=== PATIENT | male | born 1930 | race Caucasian/White ===

== ENCOUNTER 2016-07-21 14:48 | Inpatient (IN) | payer OTHER, MEDICARE ==
[~2016-07-21] VITALS: Ht 182.9 cm; Wt 78.0 kg
[2016-07-24] MEDS ORDERED: APIX5TAB PO (15:48)
[2016-07-24] MEDS ORDERED: LEVO100T5 PO (15:48)
[2016-07-24] MEDS ORDERED: DILT120T PO (15:48)
[2016-07-24] MEDS ORDERED: NIAC500T18 PO (15:56)
[2016-07-24] MEDS ORDERED: ACET500C9 PO (15:56)
[2016-07-24] MEDS ORDERED: GARL2000 PO (15:56)
[2016-07-24] MEDS ORDERED: VITA10007 PO (15:56)
[2016-07-24] MEDS ORDERED: LUTE40CA2 PO (15:56)
[2016-07-24] MEDS ORDERED: CHOL50008 PO (15:56)
[2016-07-24] MEDS ORDERED: COQ-100C2 PO (15:56)
[2016-07-24] MEDS ORDERED: OMEGCAP PO (15:56)
[2016-07-24] MEDS ORDERED: METACAP2 PO (15:56)
[2016-07-24] MEDS ORDERED: GARL500C5 (15:56)
[2016-07-24] MEDS ORDERED: FERR240T PO (15:56)
--- NOTE | 2016-07-24 17:52 | MH ---
cc: GABRIELA RUIZ DATE OF ADMISSION 07/25/2016 ADMISSION DIAGNOSIS Malfunctioning left total hip replacement arthroplasty. HISTORY OF THE PRESENT ILLNESS This is an 85-year-old white male status post bilateral previous hip replacement arthroplasty. The patient developed progressive dislocation of his right hip in the past and the patient came to revision hip surgery by the undersigned in 2011. 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 He has done well with his right hip having almost no symptoms. The patient is having progressive dislocation of left hip. Investigative studies shows evidence of the significant wear of the polyethylene with dislocation related to malfunctioning of the components. He presents for revision surgery. PAST MEDICAL HISTORY, SOCIAL HISTORY AND FAMILY HISTORY See attached notes. REVIEW OF SYSTEMS See attached notes. PHYSICAL EXAMINATION VITAL SIGNS: 5 feet 11 inches, 177 pounds, BMI 24.7. Blood pressure 136/82. HEENT: Normocephalic, atraumatic. Pupils equal, round, reactive to light and accommodation. Extraocular motions intact. NECK: Supple. CHEST: Clear. HEART: Regular rate and rhythm. ABDOMEN: Soft, nontender, normoactive sounds. MUSCULOSKELETAL: Examination, left hip well-healed lateral and posterior incision. Pain with range of motion. Left hip flexion 80, internal rotation 20, external rotation 30. There is pain with range of motion. Neurologic vascular emanation is within normal limits. IMPRESSION Malfunctioning left total hip replacement arthroplasty. PLAN Revision left total hip replacement arthroplasty, possible extended femoral shaft osteotomy. CONSENT The risks of surgery including infection, bleeding, loss of motion, continued pain, need for further surgery, neurologic or vascular injury. The patient understands these issues and wishes to press on with surgery as outlined above. MD MEGHAN Pina/KK /5:25 PM /5:41 PM
[2016-07-25] MEDS ORDERED: INSULIN HUMAN REGULAR 1,000 UNITS/10 ML VIAL SQ PRN (11:15)
[2016-07-25] MEDS: EXPAREL PERI-ARTICULAR INJECTION (TOTAL VOL. 60 ML) P-ARTICULR SCH ×4 (11:15→17:00)
[2016-07-25] MEDS ORDERED: LACTATED RINGER'S 1000 ML IV SCH (11:15)
[2016-07-25] MEDS ORDERED: ceFAZolin 2 GM PREMIX 50 ML IV SCH (11:15)
[2016-07-25] MEDS: POVIDONE IODINE 7.5% SCRUB 118 ML BOTTLE TOP SCH (11:15)
[2016-07-25] MEDS ORDERED: VANCOMYCIN 1000 MG/NS 250 ML (for <70 kg) IV SCH ×2 (11:15)
[2016-07-25] MEDS: SODIUM CHLORIDE 0.9% IV SCH ×2 (11:15→15:35)
[2016-07-25] MEDS ORDERED: METOPROLOL TARTRATE 25 MG TAB PO PRN (11:15)
[2016-07-25] MEDS: TRANEXAMIC ACID IV SCH ×2 (11:15→15:35)
[2016-07-25] MEDS: SODIUM CHLORID 0.9% 500 ML IV SCH (11:15)
[2016-07-25] MEDS ORDERED: HEPARIN SODIUM - SQ 10,000 UNITS/ML VIAL ONE (11:55)
[2016-07-25] MEDS ORDERED: PROPOFOL 200 MG/20 ML AMP IV ONE (12:00)
[2016-07-25] MEDS ORDERED: ONDANSETRON HCL 4 MG/2 ML VIAL IV PUSH ONE (12:00)
[2016-07-25] MEDS ORDERED: LACTATED RINGER'S 1000 ML INJ 1,000 ML IV ONE (12:00)
[2016-07-25] MEDS ORDERED: NEOSTIGMINE 3 MG/3 ML SYR IV ONE (12:00)
[2016-07-25] MEDS ORDERED: PHENYLEPH/NS 1000 MCG/10 ML SYR IV ONE (12:00)
[2016-07-25] MEDS ORDERED: NORMOSOL R INJ 3,000 ML IV ONE (12:00)
[2016-07-25 12:07] VITALS: BP 151/87; PULSE 85; RESP 16; TEMP 97.9; O2SAT 100
[2016-07-25] MEDS ORDERED: GENTAMICIN SULFATE 80 MG/2 ML VIAL ONE (12:33)
[2016-07-25] MEDS ORDERED: ACETAMINOPHEN 1000 MG/100 ML VIAL IV ONE (13:18)
[2016-07-25] MEDS ORDERED: MIDAZOLAM HCL 2 MG/2 ML VIAL ONE (13:18)
[2016-07-25] MEDS ORDERED: DEXAMETHASONE SOD PHOS 4 MG/ML VIAL ONE (13:19)
[2016-07-25] MEDS ORDERED: GELFOAM SIZE 100 ONE (14:26)
[2016-07-25] MEDS ORDERED: THROMBIN (TOPICAL) 5,000 UNIT VIAL ONE (14:26)
[2016-07-25] MEDS ORDERED: fentaNYL CITRATE 250 MCG/5 ML AMP ONE ×2 (16:59)
--- NOTE | 2016-07-25 17:05 | EKG ---
Date Performed: 07/25/2016 Time Performed: 11:57:22 PTAGE: 85 years EKG: ATRIAL FIBRILLATION LOW QRS VOLTAGE IN EXTREMITY LEADS ABNORMAL RHYTHM ECG NO PREVIOUS TRACING DOCTOR: Robby Middleton Interpretating Date/Time 07/25/2016 17:02:09
[2016-07-25] MEDS ORDERED: MORPHINE SULFATE 8 MG/ML INJ IM PRN (17:30)
[2016-07-25] MEDS ORDERED: Post-op Orders (for Pharmacy) MISC XX ONE (17:30)
[2016-07-25] MEDS ORDERED: BISACODYL 10 MG SUPP PR PRN (17:30)
[2016-07-25] MEDS ORDERED: MORPHINE SULFATE 30 MG/30 ML PCA IV SCH (17:30)
[2016-07-25] MEDS ORDERED: TEMAZEPAM 15 MG CAP PO PRN (17:30)
[2016-07-25] MEDS ORDERED: SODIUM CHLORIDE 0.9% FLUSH 5 ML FLUSH IVF PRN (17:30)
[2016-07-25] MEDS ORDERED: NALOXONE HCL 0.4 MG/ML AMP IV PRN (17:30)
[2016-07-25] MEDS ORDERED: ALUMINUM/MAGNESIUM/SIMETH 30 ML CUP PO PRN (17:30)
--- NOTE | 2016-07-25 17:45 | PD.OP ---
cc: Selvin Borja MD Operative Report Date of Surgery: Jul 25, 2016 Preoperative Diagnosis: Malfunctioning left total hip replacement arthroplasty Postoperative Diagnosis: Same Procedure: Revision left total hip replacement arthroplasty Anesthesia: Gen. Surgeon: Selvin Borja Mail Handler Assistant(s): PEPITO Goodrich Operation and Findings: EBL: 175 cc INDICATION: This patient is an 85-year-old male who had a primary left total hip replacement many years ago in [place]. Over the last 6 months he's had multiple episodes of dislocation of his total hip. He has evidence of malfunctioning of the acetabular component with wear the components. He now presents for revision. NOTE: Nela Goodrich PA-C was present for the entire surgical procedure as my campus administrative assistant. In my medical opinion her skill and care was necessary for the proper management of this patient. COMPONENTS: COMPANY: [employer] CUP: [employer] nephew, reflection, 56 mm HEAD: [employer] nephew, oxalium 36 mm, +4 12/14 taper LINER: Anteverted liner, +4 offset, hooded, 36 mm, 54/56 PROCEDURE: This patient was brought to the operating room and anesthetized in the supine position and positioned on the routine table in the clean air suite. The patient was then rolled to a left side up lateral position and held with a Biomet hip positioner. The hip and leg was scrubbed with alcohol followed by Hibiclens followed by chloro prep and draped sterilely. A timeout was done and antibiotics were given within a routine time window. A 5 inch incision was made starting along the posterior one third of the greater trochanter, excising the previous incision. The iliotibial band was opened in line with the incision. The Charnley retractors were positioned. The posterior capsule and external rotators were taken down together in a sleeve. Significant granulation tissue was identified which was resected. There was a significant greater trochanteric bursitis which was also resected. The gluteus yuliya insertion was taken down. A subtotal capsulectomy was performed. Significant previous scar tissue was resected. There was significant wear of the polyethylene posteriorly was seen and allowing the femoral head to dislocate posteriorly fairly easily. The acetabular component was exposed. The hip was dislocated posteriorly. The femoral head was removed. Minimal corrosion along the femoral neck was seen. The femoral component was checked carefully. It was impacted quite hard. There was no evidence of loosening. Granulation tissue was resected around the proximal femur. The attention was directed to the acetabular component. The polyethylene was loose and was removed without difficulty. We checked carefully the acetabular component. We impacted this several times in a retrograde fashion and appeared to be quite solid. It was anteverted approximately 15. Because of the lack of significant anteversion, we trialed a 36 mm with a fluted +4 offset type acetabular component. We then reduced this with a +4 x 36 femoral head. At 90 flexion with 10 of adduction we were stable to 65 or 70 of internal rotation. With full external rotation and extension and could not be subluxed anteriorly. The acetabular component was inspected. It was cleansed properly. The final acetabular component was impacted. We redirected to the stem and trialed again with a +4 and then finally used a 36 mm +4 femoral head. The hip was reduced. The leg length appeared to be equal where we started. Stability was as previously noted. The posterior capsule and external rotators were repaired through bone with interrupted #2 Tycron sutures. The piriformis muscle was repaired with the same. The iliotibial band with interrupted #1 Vicryl sutures. Subcutaneous tissue was approximated with 2-0 Vicryl suture and skin with running intradermal 3-0 Vicryl followed by Steri-Strips and benzoin. A sterile dressing was applied.. The sponge count needle counts and instrument counts were all correct. The patient was awakened and taken to the recovery room in satisfactory condition FINDINGS: This patient had significant granulation tissue. The plastic acetabular component was not solidly locked. There was dislocation with the femoral head dislocating posteriorly quite easily over a rim defect in the acetabular component. The final solution was excellent. Selvin Borja MD Jul 25, 2016 17:45
[2016-07-25] MEDS ORDERED: HYDR-3580 PO (17:50)
[2016-07-25] MEDS ORDERED: APIX2.5T PO (17:50)
[2016-07-25] MEDS: LACTATED RINGER'S 1000 ML INJ 1,000 ML IV SCH (18:41)
[2016-07-25 19:12] LABS: HEMATOCRIT 40.8 % (39.0-51.0); REVIEW FLAG FINAL
[2016-07-25] MEDS: SODIUM CHLORIDE 0.9% FLUSH 5 ML FLUSH IVF SCH (20:46)
[2016-07-25] MEDS: DILTIAZEM-CD 120 MG CAP ER PO SCH (21:00)
[2016-07-25] MEDS: PCA - TOTAL MG MORPHINE DELIVERED PER SHIFT SCH (22:00)
[2016-07-26] MEDS: SODIUM CHLORID 0.9% 500 ML IV SCH (03:55)
[2016-07-26] MEDS: LEVOTHYROXINE SODIUM 100 MCG TAB PO SCH (05:00)
[2016-07-26] MEDS: PCA - TOTAL MG MORPHINE DELIVERED PER SHIFT SCH (05:15)
[2016-07-26 06:58] LABS: HEMATOCRIT 39.5 % (39.0-51.0); REVIEW FLAG FINAL
[2016-07-26] MEDS: LACTATED RINGER'S 1000 ML INJ 1,000 ML IV SCH ×2 (07:00→17:37)
[2016-07-26] MEDS ORDERED: MISC-163 (07:54)
[2016-07-26] MEDS ORDERED: WALKER WHEELS/F1 MIS (07:54)
[2016-07-26] MEDS: SODIUM CHLORIDE 0.9% FLUSH 5 ML FLUSH IVF SCH ×2 (08:31→20:50)
[2016-07-26] MEDS ORDERED: PNEUMOCOCCAL POLYVALENT INJ 25 MCG/0.5 ML SYR IM ONE (09:00)
[2016-07-26] MEDS ORDERED: INFLUENZA VIRUS VACCINE (QUADRIVALENT) 0.5 ML SYR IM ONE (09:00)
[2016-07-26] MEDS: POVIDONE IODINE 7.5% SCRUB 118 ML BOTTLE TOP SCH (11:15)
[2016-07-26] MEDS: ACETAMINOPHEN/HYDROcodone 325 MG/7.5 MG TAB PO PRN ×2 (12:36→20:49)
[2016-07-26 13:00] VITALS: BP 124/73; PULSE 103; RESP 16; TEMP 96.2; O2SAT 95
--- NOTE | 2016-07-26 13:12 | PD.ORT.PN ---
Subjective Subjective Remarks He has moderate left hip pain that is well controlled with medications. He states he is 'comfortable in bed'. He denies any new leg pain, CP or SOB. He has many questions about surgery. Objective Vitals Vital Signs Date Time Temp Pulse Resp B/P Pulse Ox O2 Delivery O2 Flow Rate FiO2 07/26/16 08:30 98.1 96 13 128/91 98 Room Air 07/26/16 06:00 97.7 95 12 99 Nasal Cannula 2 07/26/16 05:15 12 07/26/16 04:00 98.0 97 16 127/85 98 Nasal Cannula 2 07/26/16 02:00 102 12 99 Nasal Cannula 2 07/26/16 00:00 97.5 101 12 118/78 99 Nasal Cannula 2 07/26/16 00:00 97.5 07/25/16 22:00 97.4 103 16 132/87 100 Nasal Cannula 2 07/25/16 22:00 97.4 07/25/16 22:00 16 07/25/16 21:00 108 16 137/88 99 Nasal Cannula 2 07/25/16 20:30 97.2 07/25/16 20:00 97.2 93 22 142/96 100 Nasal Cannula 2 07/25/16 19:45 88 17 139/92 100 Nasal Cannula 2 07/25/16 19:30 97.4 90 16 154/97 100 Nasal Cannula 2 07/25/16 19:15 87 16 159/99 95 Nasal Cannula 2 07/25/16 19:00 85 18 147/94 100 Nasal Cannula 2 07/25/16 18:45 88 18 138/92 100 Nasal Cannula 3 07/25/16 18:41 18 07/25/16 18:30 97 18 136/85 99 Nasal Cannula 3 07/25/16 18:15 85 20 154/96 99 Nasal Cannula 3 07/25/16 18:12 97.2 90 20 147/95 96 Nasal Cannula 3 I/O 07/25/16 07/25/16 07/25/16 07/26/16 07/26/16 07/26/16 07:00 15:00 23:00 07:00 15:00 23:00 Intake Total 3632 ml 1617 ml 240 ml Output Total 1120 ml 700 ml Balance 2512 ml 917 ml 240 ml Intake Oral 594 ml 942 ml 240 ml IV Total 438 ml 675 ml Other 2600 ml Output Urine Total 940 ml 700 ml Estimated Blood Loss 180 ml Result Diagram: 07/26/16 0449 Objective Remarks Sitting up in bed in PACU, No acute distress, Anxious VSS LLE Dressing c/d/i, very little drainage, mild swelling, no erythema thigh and calf supple, neg homans +motor at, +sens, +nvi Assessment & Plan Ortho Post Op Day #: 1 Problem List: Assessment and Plan pod#1 s/p Rev L TARIQ, 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 PT - WBAT LLE, posterior approach precautions. Walker/Gait training. Hold dressing changes unless saturated. Eliquis for dvt prophylaxis (was on preoperatively) D/C planning, likely SNF sunday. DME written. Selvin Borja MD Jul 26, 2016 13:12
[2016-07-26 16:00] VITALS: BP 115/76; PULSE 102; RESP 18; TEMP 97.6; O2SAT 99
[2016-07-26 16:20] VITALS: BP 129/76; PULSE 98; RESP 16; TEMP 96.4; O2SAT 96
[2016-07-26] MEDS: APIXABAN 2.5 MG TABLET PO SCH (17:35)
[2016-07-26 19:53] VITALS: BP 136/83; PULSE 111; RESP 18; TEMP 97.6; O2SAT 96
[2016-07-26] MEDS: DILTIAZEM-CD 120 MG CAP ER PO SCH (20:49)
[2016-07-26] MEDS: DOCUSATE SODIUM 100 MG CAP PO SCH (20:49)
[2016-07-27] MEDS: LACTATED RINGER'S 1000 ML INJ 1,000 ML IV SCH ×2 (00:52→20:00)
[2016-07-27 01:04] VITALS: BP 141/86; PULSE 115; RESP 17; TEMP 95.8; O2SAT 95
[2016-07-27] MEDS: MAGNESIUM HYDROXIDE SUSP 30 ML CUP PO PRN ×2 (05:59→21:08)
[2016-07-27] MEDS: LEVOTHYROXINE SODIUM 100 MCG TAB PO SCH (06:00)
[2016-07-27] MEDS: ACETAMINOPHEN/HYDROcodone 325 MG/7.5 MG TAB PO PRN ×3 (06:00→21:48)
[2016-07-27] MEDS: ONDANSETRON HCL 4 MG/2 ML VIAL IVP PRN ×2 (06:00→21:49)
[2016-07-27] MEDS: APIXABAN 2.5 MG TABLET PO SCH ×2 (06:20→18:02)
[2016-07-27 08:00] VITALS: BP 152/85; PULSE 123; RESP 19; TEMP 100.2; O2SAT 98
[2016-07-27] MEDS: POVIDONE IODINE 7.5% SCRUB 118 ML BOTTLE TOP SCH (08:26)
[2016-07-27] MEDS: SODIUM CHLORIDE 0.9% FLUSH 5 ML FLUSH IVF SCH ×2 (08:27→21:09)
[2016-07-27] MEDS: DOCUSATE SODIUM 100 MG CAP PO SCH ×2 (08:27→21:08)
--- NOTE | 2016-07-27 09:27 | HHI.DCPOC ---
Discharge Care Plan Diagnosis: (1) Left hip pain (2) Mechanical complic of internal orthopedic device, implant or graft (3) History of total left hip arthroplasty Your Health Problems Are: Incision/Drains Goals to Promote Your Health * To prevent worsening of your condition and complications * To maintain your health at the optimal level Directions to Meet Your Goals Take your medications as prescribed Follow your dietary instruction Follow activity as directed Keep your appointments as scheduled Take your immunizations and boosters as scheduled If your symptoms worsen call your PCP, if no PCP go to Urgent Care Center or Emergency Room Smoking is Dangerous to Your Health. Avoid second hand smoke Call the 24-hour hour crisis hotline for domestic abuse at Caro Lewis Jul 27, 2016 09:27
--- NOTE | 2016-07-27 09:31 | HHI.DS ---
Discharge Summary Admission Date Jul 25, 2016 at 10:59 Discharge Date: Jul 28, 2016 Admitting Diagnosis see below Diagnosis: (1) Left hip pain Diagnosis: Principal (2) Mechanical complic of internal orthopedic device, implant or graft Diagnosis: Principal (3) History of total left hip arthroplasty Diagnosis: Principal Procedures Revisional left total hip arthroplasty, head and liner exchange Brief History This is a 85 year old male patient with a history of left total hip arthroplasty 20 years ago. He did very well for many years. Early 2015 he began to dislocate and to have increased left hip pain. Imaging studies were performed which showed limited osteolysis but the patient continued to dislocate. Surgical revision was recommended to avoid further injury and dislocation and the patient elected to move forward. CBC/BMP: 07/26/16 0449 PE at Discharge Sitting up in bed in PACU, No acute distress, Anxious VSS LLE Dressing c/d/i, very little drainage, mild swelling, no erythema thigh and calf supple, neg homans +motor at, +sens, +nvi Hospital Course Surgical treatment was performed on the day of admission without complication. He recovered well in PACU and was held there for one night due to limited beds available on the orthopaedic floor. At the end of pod#1 he was transferred. Pain was controlled with IV and oral medications. DVT prophylaxis was initiated pod#1. He was compliant with physical therapy and all precautions. After 3 days he was found to be stable and [facility] with instruction to continue therapy and pursue a high fiber diet for the next 72 hours. Pt Condition on Discharge: Stable Discharge Disposition: Discharge to SNF Discharge Instructions Diet Instructions: As Tolerated, No Restrictions, High Fiber Diet Activities You Can Perform: Weight Bearing as Marcelo Activities to Avoid: Strenuous Activity Additional Activity Instruc.: TARIQ precautions, posterior New Medications: 3-in-1 Bedside Toilet (3-in-1 Bedside Toilet) 1 Mis Mis 1 EA .ROUTE DIRECTED #1 EA Walker with Front Wheels (Walker with Front Wheels) 1 Mis Mis 1 EA .ROUTE DIRECTED #1 Ref 0 EA Apixaban (Eliquis) 2.5 Mg Tab 2.5 MG PO BID Prevent Blood Clot #10 TAB Hydrocodone-Acetaminophen (Hydrocodone-Acetaminophen) 7.5-325 mg Tab 1 TAB PO Q4H PRN PAIN LESS THAN 5 ON SCALE #50 TAB Continued Medications: Acetylcarnitine (Nutrient) (Acetyl l-Carnitine (Nutrient)) 500 Mg Cap 1 CAP PO BID Nutritional Supplement Ascorbic Acid (Vitamin C) 1,000 Mg Tab 1000 MG PO DAILY Nutritional Supplement Ref 0 TAB Cholecalciferol (Vitamin D3) 5,000 Unit Tab 5000 UNITS PO DAILY Nutritional Supplement #1 Ref 0 BOTTLE Coenzyme Q10 (Ubidecarenone) (Coq-10) 100 Mg Cap 1 TAB PO DAILY Nutritional Supplement Diltiazem (Diltiazem) 120 Mg Tab 120 MG PO HS Angina #120 Ref 0 TAB Ferrous Gluconate (Ferrous Gluconate) 240 Mg Tab 240 MG PO BID Nutritional Supplement #30 Ref 0 TAB Fish Oil-Cholecalciferol ([place]-3 Fish Oil/Vitamin) 1,000-1,000 Mg Cap 1 CAP PO DAILY Nutritional Supplement Ref 0 CAP Garlic (Garlic) 2,000 Mg Tab 1 TAB PO DAILY Nutritional Supplement Levothyroxine (Levothyroxine) 100 Mcg Tab 100 MCG PO DAILY Thyroid #30 Ref 0 TAB Lutein (Lutein) 40 Mg Cap 40 MG PO DAILY Nutritional Supplement Ref 0 CAP Niacinamide (Niacin) 500 Mg Tab 1 CAP PO BID Nutritional Supplement Psyllium-Calcium (Metamucil Plus Calcium) 1 Cap Cap 510 MG PO DAILY Constipation Discontinued Medications: Apixaban (Eliquis) 5 Mg Tab 5 MG PO BID Blood Clot Prevention #60 Ref 0 TAB Caro Lewis Jul 27, 2016 09:30
--- NOTE | 2016-07-27 09:53 | PD.ORT.PN ---
Subjective Subjective Remarks Doing well. Was able to get transferred yesterday afternoon. Up walking today. Pain well controlled. No new radiating leg pain. Urinating well. No other complaints. Wants to 'make sure things are set up for rehab'. Objective Vitals Vital Signs Date Time Temp Pulse Resp B/P Pulse Ox O2 Delivery O2 Flow Rate FiO2 07/27/16 08:00 100.2 123 19 152/85 98 07/27/16 01:04 95.8 115 17 141/86 95 07/26/16 19:53 97.6 111 18 136/83 96 07/26/16 18:41 21 07/26/16 16:20 96.4 98 16 129/76 96 07/26/16 16:00 97.6 102 18 115/76 99 07/26/16 13:00 96.2 103 16 124/73 95 07/26/16 12:30 98.6 80 16 124/82 98 Room Air 07/26/16 11:30 87 14 111/77 97 Room Air I/O 07/26/16 07/26/16 07/26/16 07/27/16 07/27/16 07/27/16 07:00 15:00 23:00 07:00 15:00 23:00 Intake Total 1617 ml 690 ml 840 ml 600 ml Output Total 700 ml 2500 ml 200 ml 1500 ml Balance 917 ml -1810 ml 640 ml -900 ml Intake Oral 942 ml 690 ml 840 ml 600 ml IV Total 675 ml Output Urine Total 700 ml 2500 ml 200 ml 1500 ml # Voids 1 # Bowel Movements 0 0 Result Diagram: 07/26/16 0449 Procedures Revisional left total hip arthroplasty, head and liner exchange Objective Remarks Walking w RN w walker, No acute distress, VSS LLE Dressing c/d/i, very little drainage, mild swelling, no erythema thigh and calf supple, neg homans +motor at, +sens, +nvi Assessment & Plan Ortho Post Op Day #: 2 Problem List: (1) Left hip pain (2) Mechanical complic of internal orthopedic device, implant or graft (3) History of total left hip arthroplasty Assessment and Plan pod#2 s/p Rev L TARIQ, posterior PO pain meds as needed. PT - WBAT LLE, posterior approach precautions. Walker/Gait training. Hold dressing changes unless saturated. Ok to remove outer dressing but leave inner tegaderm/sealed dressing intact. Eliquis 2.5mg BID dvt prophylaxis (was on preoperatively) D/C planning, likely SNF tomorrow. DME written. [id number] signed Caro Lewis Jul 27, 2016 09:53
[2016-07-27 11:51] VITALS: BP 140/80; PULSE 98; RESP 19; TEMP 98.7; O2SAT 98
[2016-07-27 16:00] VITALS: BP 137/70; PULSE 93; RESP 18; TEMP 97.8; O2SAT 98
[2016-07-27 20:00] VITALS: BP 128/92; PULSE 126; RESP 18; TEMP 97.2; O2SAT 96
[2016-07-27] MEDS: DILTIAZEM-CD 120 MG CAP ER PO SCH (21:08)
[2016-07-28] VITALS: BP 130/69; PULSE 115; RESP 16; TEMP 96.8; O2SAT 97
[2016-07-28 04:15] VITALS: PULSE 77
[2016-07-28] MEDS: LEVOTHYROXINE SODIUM 100 MCG TAB PO SCH (06:16)
[2016-07-28] MEDS: APIXABAN 2.5 MG TABLET PO SCH (06:16)
--- NOTE | 2016-07-28 07:47 | PD.ORT.PN ---
Subjective Subjective Remarks Doing well. Had BM yesterday. Pain well controlled. No new complaints. Feeling well. No new radiating leg pain. Urinating well. No other complaints. Ready for SNF. Objective Vitals Vital Signs Date Time Temp Pulse Resp B/P Pulse Ox O2 Delivery O2 Flow Rate FiO2 07/28/16 04:15 77 07/28/16 00:00 96.8 115 16 130/69 97 07/27/16 20:58 21 07/27/16 20:00 97.2 126 18 128/92 96 07/27/16 16:00 97.8 93 18 137/70 98 07/27/16 11:51 98.7 98 19 140/80 98 07/27/16 08:00 100.2 123 19 152/85 98 I/O 07/27/16 07/27/16 07/27/16 07/28/16 07/28/16 07/28/16 07:00 15:00 23:00 07:00 15:00 23:00 Intake Total 600 ml 800 ml 720 ml 240 ml Output Total 1500 ml 400 ml Balance -900 ml 400 ml 720 ml 240 ml Intake Oral 600 ml 800 ml 720 ml 240 ml Output Urine Total 1500 ml 400 ml # Voids 1 3 1 # Bowel Movements 0 0 1 Result Diagram: 07/26/16 0449 Procedures Revisional left total hip arthroplasty, head and liner exchange Objective Remarks Sitting up in bed, No acute distress, VSS LLE Dressing c/d/i, no new drainage, mild swelling, no erythema thigh and calf supple, neg homans +motor at, +sens, +nvi Assessment & Plan Ortho Post Op Day #: 3 Problem List: (1) Left hip pain (2) Mechanical complic of internal orthopedic device, implant or graft (3) History of total left hip arthroplasty Assessment and Plan pod#3 s/p Rev L TARIQ, posterior Ok to d/c to SNF today. PO pain meds as needed. PT - WBAT LLE, posterior approach precautions. Walker/Gait training. Hold dressing changes unless saturated. Ok to remove outer dressing but leave inner tegaderm/sealed dressing intact. Eliquis 2.5mg BID dvt prophylaxis (was on preoperatively) F/U in 2 weeks as scheduled. DME written. [id number] signed Caro Lewsi Jul 28, 2016 07:47
[2016-07-28 08:00] VITALS: BP 109/74; PULSE 95; RESP 18; TEMP 96.4; O2SAT 98
[2016-07-28] MEDS: LACTATED RINGER'S 1000 ML INJ 1,000 ML IV SCH (08:17)
[2016-07-28] MEDS: SODIUM CHLORIDE 0.9% FLUSH 5 ML FLUSH IVF SCH (08:26)
[2016-07-28] MEDS: DOCUSATE SODIUM 100 MG CAP PO SCH (08:26)
--- NOTE | 2016-08-01 09:30 | RADRPT ---
EXAM DATE/TIME: 07/25/2016 18:25 [facility] COMPARISON: No previous studies available for comparison. INDICATIONS : Post op left hip. MEDICAL HISTORY : None. SURGICAL HISTORY : None. ENCOUNTER: Initial ACUITY: 1 day PAIN SCORE: Non-responsive. LOCATION: Left pelvis FINDINGS: Examination of the hip demonstrates postoperative left total hip replacement. Air in soft tissues. No rmal alignment. CONCLUSION: 1. Postoperative left total hip replacement. No complications identified. Jax Rodriguez MD on July 25, 2016 at 19:17 Board Certified Radiologist. This report was verified electronically.
== END 2016-07-28 11:32 | DRG 468 ==
LOC: HSDI 07-25 10:59 → N06B 07-26 13:17
PROVIDERS: ADMIT Orthopaedic Surgery Orthopaedic Surgery of the Spine; ATTEND Orthopaedic Surgery Orthopaedic Surgery of the Spine
PROC: 0SPB09Z Removal of Liner from Left Hip Joint, Open Approach (ICD-10-PCS; 2016-07-25)
PROC: 0SUE09Z Supplement Left Hip Joint, Acetabular Surface with Liner, Open Approach (ICD-10-PCS; 2016-07-25)
PROC: 0SPS0JZ Removal of Synthetic Substitute from Left Hip Joint, Femoral Surface, Open Approach (ICD-10-PCS; 2016-07-25)
PROC: 0SRS0JA Replacement of Left Hip Joint, Femoral Surface with Synthetic Substitute, Uncemented, Open Approach (ICD-10-PCS; principal; 2016-07-25 14:06)
DX: T84.061A Wear of articular bearing surface of internal prosthetic left hip joint, initial encounter (principal); T84.021D Dislocation of internal left hip prosthesis, subsequent encounter; Y83.8 Other surgical procedures as the cause of abnormal reaction of the patient, or of later complication, without mention of misadventure at the time of the procedure; Y79.2 Prosthetic and other implants, materials and accessory orthopedic devices associated with adverse incidents
CPT/HCPCS: 73501; 85014; 85018; 86850; 86890; 86900; 86901; 86920; 93005; 94150; C1776; C9290; J0131; J0690; J1100; J1580; J1644; J2250; J2270; J2370; J2405; J2710; J3010; J3370; J7050; J7120